=== PATIENT | male | born 1985 | race Two or more races ===

== ENCOUNTER 2021-11-27 00:09 | Emergency (ER) | payer SELFPAY ==
[~2021-11-27] VITALS: Ht 162.6 cm; Wt 68.2 kg
[2021-11-27] MEDS ORDERED: ACETAMINOPHEN/CODEINE 300-30 MG TABLET PO ONE (01:00)
[2021-11-27] MEDS ORDERED: KETOROLAC TROMETHAMINE 60 MG/2 ML VIAL IM ONE (01:00)
[2021-11-27] MEDS ORDERED: IBUP-1554 PO (01:18)
[2021-11-27] MEDS ORDERED: ACET-2080 PO (01:18)
[2021-11-27 01:30] VITALS: BP 143/100
== END 2021-11-27 02:00 | disposition home or self-care (01) ==
LOC: EDBD 00:11 → EMS 00:11
DX: S40.011A Contusion of right shoulder, initial encounter (principal); W03.XXXA Other fall on same level due to collision with another person, initial encounter; Y93.66 Activity, soccer; Y92.89 Other specified places as the place of occurrence of the external cause; Y99.8 Other external cause status
CPT/HCPCS: 73030; 96372; 99283; J1885; 29240